=== PATIENT | male | born 1955 | race Caucasian/White ===

== ENCOUNTER 2025-05-07 12:01 | Outpatient (CLI) | payer MEDICARE, OTHER, SELFPAY ==
--- NOTE | ~2025-05-07 | PE_ITS ---
EXAMINATION: PET_PETPSMAST_PT DATE: 05/07/2025 14:50 INDICATION: Prostate cancer TECHNIQUE: 5.566 mCi of Illucix Ga-68([id number]) was administered i.v. Low dose computed zahida graphy (CT) images were acquired from the base of the brain to the base of the brain to the proximal thighs for attenuation correction and anatomic localization. Positron emission tomography (PET) image s were acquired in the same distribution beginning 95 minutes after injection. Images including fused PET/CT images were reconstructed in axial, coronal, and sagittal planes. Automated exposure control technique was employed. The dose-length product was 1069.79mGy-cm. COMPARISON: None FINDINGS: Head/neck: Typical pattern of symmetric physiologic increased activity in the lacrimal, parotid and submandibula r glands as well as along the mucosa of the nasal and oral cavities, pharynx and hypopharynx. There i s a single enlarged 2.3 x 1.4 cm left submental lymph node without increased activity which could be either reactive or related to lymphoma or other known prostatic metastatic disease. No other patholog ically enlarged cervical lymphadenopathy or suspicious foci of increased uptake in the visualized hea d or neck. Chest: Mild dependent atelectasis in bilateral lower lobes. Heart size is normal. Atherosclerotic coronary a rtery calcification. No pericardial or pleural effusion. Thoracic aorta is normal in caliber. No path ologically enlarged or PSMA avid thoracic lymphadenopathy. Abdomen/pelvis/proximal thighs: Physiologic renal accumulation and excretion of activity in the kidneys, bladder and along portions o f ureters. Prostatomegaly measuring 4.7 x 3.6 cm. There is a small focus of increased uptake with max imal SUV of 12.6 positioned at the right posterior peripheral zone of the prostate consistent with pr imary prostate cancer. Normal degree and slightly heterogenous pattern of increased uptake throughout the liver and spleen without radiologic correlate or dominant PSMA avid lesion. The gallbladder, gan creas and bilateral adrenal glands are normal. Moderate uptake scattered throughout the bowels with t ypical duodenal and proximal jejunal predominance and without radiologic correlate, also likely physi ologic. There is mild colonic diverticulosis without adjacent inflammatory change to suggest divertic ulitis. Normal appendix. No other abnormal foci of increased uptake or pathologically enlarged lympha denopathy in the abdomen, pelvis or proximal thighs. Musculoskeletal: Mild thoracic and moderate cervical and lumbar spondylosis. No suspicious lytic, blastic or abnormall y PSMA avid bone lesions. IMPRESSION: 1. Single focus of increased uptake at the right peripheral zone of the prostate consistent with prim berta prostate cancer. No evident metastatic disease. 2. Indeterminate enlarged 2.3 x 1.4 similar left submental lymph node without evident PSMA neck activ ity which could be reactive, lymphoma or metastatic in etiology. Could consider ultrasound-guided bio psy. Reviewed, dictated and finalized at location A. IMPRESSION: 1. Single focus of increased uptake at the right peripheral zone of the prostat e consistent with primary prostate cancer. No evident metastatic disease. 2. Indeterminate enlarged 2.3 x 1.4 similar left submental lymph node without e vident PSMA neck activity which could be reactive, lymphoma or metastatic in et iology. Could consider ultrasound-guided biopsy.
--- OUTSIDE RECORDS SUMMARY | 2025-05-07 12:07 | XMS_ITS | Referral Summary ---
Author Organization [facility] [address] [facility] Address [address] [place] [address] Care Team Providers Care Manager Continuous Improvement Name Role Phone Ky Davalos MD Primary Care Provider [phone] Encounters Date Type Department Care Team Description 05/02/2025 Orders Only [facility] Operating Room [address] [place] [phone] Godfrey Fan MD External hemorrhoid (Primary Dx) 04/26/2025 11:00 AM CDT - 04/26/2025 11:45 AM CDT Surgery [facility] Operating Room 1 [place] [address] Godfrey Fan MD URONAV GUIDED PROSTATE BIOPSY 04/26/2025 11:10 AM CDT Anesthesia Event [facility] Operating Room 1 [place] [address] Gary Kimball DO Reynolds, Ethan Emerson, MD 04/26/2025 8:47 AM CDT - 04/26/2025 1:00 PM CDT Hospital Encounter [facility] Operating Room [address] [place] [address] Godfrey Fan MD Elevated prostate specific antigen (PSA) Discharge Disposition: Discharge to home or self care 04/04/2025 Telephone [facility] [address] [phone] Ky Davalos MD 02/06/2025 Telephone [facility] [address] [phone] Ky Davalos MD from Last 3 Months Allergies No known active allergies Medications aspirin 81 mg enteric coated tablet Take 1 tablet (81 mg total) by mouth daily 30 tablet 11 02/11/2021 Active atorvastatin (LIPITOR) 40 mg tablet Take 1 tablet (40 mg total) by mouth daily 90 tablet 3 01/29/2025 Active Active Problems Problem Noted Date Diagnosed Date Elevated prostate specific antigen (PSA) 025 Elevated PSA, less than 10 ng/ml 02/06/2025 Assessment & Plan (02/06/2025 1:03 PM CDT): REferral to udrology. Asymptomatic mild elevation in PSA. Refer to urology for consutlation. Annual physical exam 02/06/2025 Assessment & Plan (02/06/2025 1:04 PM CDT): Glen romo xam is preventative in nature. Reviewed immunizaotns, reviewed sun/skin cancer screneing. Reviewed colon cancer screening. Congratulate on active, healthy lfiesytle. Mixed hyperlipidemia 02/06/2025 Assessment & Plan (02/06/2025 1:04 PM CDT): Refilled atorvastatin and will follow response. No new arthrlagias. Encounter for screening colonoscopy 12/13/2019 Overview (12/13/2019): Added automatically from request for surgery [id number] Assessment & Plan (02/06/2025 1:04 PM CDT): Referral place.d Immunizations Immunization Administration Dates Next Due Influenza, Trivalent, High D ose, Split, Preservative Free, Intramuscular 08/12/2020,09/21/2019 Influenza, Unspecified 07/18/2023,2022(Deferred: Patient Refused),06/18/2022(Deferred: Patient Refused),10/18/2021(Deferred: Patient Refused),06/18/2021(Deferred: Patient Refused),08/12/2020,10/06/2019, 018 Pfizer SARS-CoV-2 Monovalent Vaccination (12+ Yrs) PURPLE 08/09/2021,01/02/2021,12/10/2020 Pneumococcal Conjugate PCV 13 09/21/2019 Pneumococcal Conjugate, Unspecified 10/06/2019 Pneumococcal Polysaccharide PPV23 09/25/2020 Social History Tobacco Use Types Packs/Day Years Used Date Smoking Tobacco: Never Smokeless Tobacco: Never Tobacco Cessation:Counseling Given: Not Answered AUDIT-C Answer Date Recorded Q1: How often do you have a drink containing alc ohol? Monthly or less 04/26/2025 Q2: How many drinks containi ng alcohol do you have on a typical day when you are drinking? 3 or 4 04/26/2025 Q3: How often do you have si x or more drinks on one occasion? Monthly 04/26/2025 PHQ-2 Answer Date Recorded PHQ-2 Total Score (If total score is 3 or more points, staff should administer the PHQ-9) 0 01/29/2025 Personal Safety Answer Date Recorded Have you ever been in or are you currently in a harmful physical or emotional relationship or is someone making you feel afraid or unsafe? 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 Gender Identity Not on file Sexual Orientation Not on file Last Filed Vital Signs Vital Sign Reading Time Taken Comments Blood Pressure 154/83 04/26/2025 12:44 PM CDT Pulse 57 04/26/2025 12:44 PM CDT Temperature 35.7 C (96.3 F) 04/26/2025 12:44 PM CDT Respiratory Rate 18 04/26/2025 12:44 PM CDT Oxygen Saturation 100% 04/26/2025 12:44 PM CDT Inhaled Oxygen Concentration - - Weight 81.7 kg (180 lb 1.9 oz) 04/26/2025 8:57 A M CDT Height 177.8 cm (5' 10) 04/26/2025 8:57 AM CDT Body Mass Index 25.84 04/26/2025 8:57 AM CDT Plan of Treatment Not on file Procedures Procedure Name Priority Date/Time Associated Diagnosis Comments SURGICAL PATHOLOGY Routine 04/26/2025 12 :44 PM CDT Elevated prostate specific antigen (PSA) URONAV GUIDED PROSTATE BIOPSY 04/26/2025 11:10 AM CDT Elevated prostate specific antigen (PSA) ECG 12-LEAD STAT 04/26/2025 9:07 AM CDT PSA SCREEN Routine 01/22/2025 9:14 AM CDT Elevated PSA COLONOSCOPY 08/12/2022 10:33 AM CDT HEPATITIS C ANTIBODY Routine 01/13/2021 10:16 AM CDT Need for hepatitis C screening test from Last 3 Months or Most Recently Relevant to Health Maintenance Results * Surgical pathology (04/26/2025 12:44 PM CDT) Tissue (Prostate, Needle Biopsy) 04/26/2025 11:19 AM CDT Tissue specimen (specimen) (Prostate, Needle Biopsy) 04/26/2025 11:19 AM CDT Tissue specimen (specimen) (Prostate, Needle Biopsy) 04/26/2025 11:19 AM CDT Tissue specimen (specimen) (Prostate, Needle Biopsy) 04/26/2025 11:19 AM CDT Tissue specimen (specimen) (Prostate, Needle Biopsy) 04/26/2025 11:19 AM CDT Tissue specimen (specimen) (Prostate, Needle Biopsy) 04/26/2025 11:19 AM CDT Tissue specimen (specimen) (Prostate, Needle Biopsy) 04/26/2025 11:19 AM CDT Tissue specimen (specimen) (Prostate, Needle Biopsy) 04/26/2025 11:19 AM CDT Tissue specimen (specimen) (Prostate, Needle Biopsy) 04/26/2025 11:19 AM CDT Tissue specimen (specimen) (Prostate, Needle Biopsy) 04/26/2025 11:19 AM CDT Tissue specimen (specimen) (Prostate, Needle Biopsy) 04/26/2025 11:19 AM CDT Tissue specimen (specimen) (Prostate, Needle Biopsy) 04/26/2025 11:19 AM CDT Tissue specimen (specimen) (Prostate, Needle Biopsy) 04/26/2025 11:21 AM CDT Tissue specimen (specimen) (Prostate, Needle Biopsy) 04/26/2025 11:22 AM CDT Narrative [facility]Y [facility] - 05/02/2025 9:56 PM CDT EPIC results best viewed via link to PDF [facility] Department of Pathology [address] [place] [address] Note to Patients: This report may contain a detailed description of human tissue sent by a health care provider to the laboratory for pathologic evaluation. The content of this report is essential for diagnosis and may provide important critical findings. This information may be unfamiliar to patients to review without a medical professional present. It is advised that the patient review this report in the presence of a health care provider who can answer questions and explain the details. Final Report Patient Name: SANDER FAIR Address: [address] [place] [address] [place] [address]- Gender: M : 1955 (Age: 69) Service: Surgery Location: [facility] Hospital #: [id number] Patient Type: [facility] Taken: 04/26/2025 Received: 04/26/2025 Accessioned: 04/26/2025 Reported: 05/02/2025 Physician(s):Godfrey Fan M.D. Diagnosis: A-G, I, K-N. Prostate (RLB, RMB, RLM, RMM, RLA, RMA, LLB, LLM, LLA, LMA, Panchito 1, Panchito 2), needle biopsies: - Adenocarcinoma (see the synoptic table below for additional details). 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 - Focal perineural invasion identified in the Panchito 1 site. H, J. Prostate (LMB, LMM), needle biopsies: - Benign prostatic tissue. Synoptic Diagnosis: Part Container Cores Length (mm) Diagnosis Bagwell score, grade group, and extent A. RLB One 10 Adenocarcinoma 4 + 3 = 7 (60% pattern 4), grade group 3, 6 mm, 60% B. RMB One 15 Adenocarcinoma 4 + 3 = 7 (90% pattern 4), grade group 3, 5 mm, 33% C. RLM One 10 Adenocarcinoma 4 + 3 = 7 (80% pattern 4), grade group 3, 9 mm, 90% D. RMM One 14 Adenocarcinoma 4 + 3 = 7 (90% pattern 4), grade group 3, 7 mm, 50% E. RLA One 10 Adenocarcinoma 4 + 3 = 7 (90% pattern 4), grade group 3, 5 mm, 50% F. RMA One 9 Adenocarcinoma 4 + 3 = 7 (90% pattern 4), grade group 3, 6 mm, 67% G. LLB One 6 Adenocarcinoma 4 + 4 = 8, grade group 4, 1 mm, 15% H. LMB One 19 Benign I. LLM One 10 Adenocarcinoma 4 + 4 = 8, grade group 4, 6 mm, 60% J. LMM One 20 Benign K. LLA One 10 Adenocarcinoma 4 + 3 = 7 (80% pattern 4), grade group 3, 2 mm, 20% L. LMA One 8 Adenocarcinoma 4 + 3 = 7 (90% pattern 4), grade group 3, 2 mm, 25% M. Panchito #1 Four 40 Adenocarcinoma 4 + 3 = 7 (90% pattern 4), grade group 3, 16 mm, 40% N. Panchito #2 Four 50 Adenocarcinoma 4 + 3 = 7 (80% pattern 4), grade group 3, 9 mm, 35% Afshin Martinez MD Report Electronically Reviewed and Signed Out By Afshin Martinez MD 05/02/2025 21:56:22 Specimen(s) Received: A: Right lateral base B: Right medial base C: Right lateral mid D: Right medial mid E: Right lateral apex F: Right medial apex G: Left lateral base H: Left medial base I: Left lateral mid J: Left medial mid K: Left lateral apex L: Left medial apex M: Region of interest 1 N: Region of interest 2 Microscopic Description: A-G, I, K-N. Specimens from these sites show similar findings and will be described together. Sections show adenocarcinoma (see the synoptic table below for additional details). Intraductal carcinoma is also seen in parts I, K, and M (corresponding to the LLM, LLA, and region of interest #1 sites). Specimen G (corresponding to LLB) shows apparent prostatic duct adenocarcinoma, classified as pattern 4 when seen without comedonecrosis. Focal perineural invasion is noted in the region of interest #1 site. p63, PSA, AMACR, and PIN-4 stains are performed with appropriately reactive controls (p63, PSA, and AMACR on blocks G1 and I1; PIN-4 on blocks K1 and M1) and show loss of the basal cell layers, PSA expression, and increased AMACR expression in the adenocarcinoma and retained basal cell layer staining in the intraductal carcinoma. Recommend follow-up as clinically indicated. H, J. Specimens from these sites show similar findings and will be described together. Sections show benign-appearing prostatic glands and stroma. A PIN-4 stain is performed with appropriately reactive controls on block H1 to evaluate a few mildly distorted glands and demonstrates no increase in AMACR expression with concurrent loss of basal layer staining. Intradepartmental consultation: This case was also reviewed by Dr. Mcdonough, who concurs with the above findings. Clinical History: Elevated prostate specific antigen (PSA). Uronav guided prostate biopsy. Gross Description: The specimen is submitted in fourteen containers labeled SANDER FAIR. A. The first container is labeled right lateral base. It is 1 core of rubio tissue measuring 1.0 cm. Entirely in A. B. The second container is labeled right medial base. It is 1 core of rubio tissue measuring 1.5 cm. Entirely in B. C. The third container is labeled right lateral mid. It is 1 core of rubio tissue measuring 1 cm. Entirely in C. D. The fourth container is labeled right medial mid. It is 1 core of rubio tissue measuring 1.4 cm. Entirely in D. E. The fifth container is labeled right lateral apex. It is 1 core of rubio tissue measuring 1.0 cm. Entirely in E. F. The sixth container is labeled right medial apex. It is 1 core of rubio tissue measuring 9 mm. Entirely in F. G. The seventh container is labeled left lateral base. It is 1 core of rubio tissue measuring 6 mm. Entirely in G. H. The eighth container is labeled left medial base. It is 1 core of rubio tissue measuring 1.9 cm. Entirely in H. I. The ninth container is labeled left lateral mid. It is 1 core of rubio tissue measuring 10 mm. Entirely in I. J. The tenth container is labeled left medial mid. It is 1 core of rubio tissue measuring 2 cm. Entirely in J. K. The eleventh container is labeled left lateral apex. It is 1 core of rubio tissue measuring 1 cm. Entirely submitted K. L. The twelfth container is labeled left medial apex. It is 1 core of rubio tissue measuring 8 mm. Entirely in L. M. The thirteenth container is labeled region of interest #1. It is 4 cores of rubio tissue between 0.4 and 1.1 cm. Entirely in M. N. The fourteenth container is labeled region of interest #2 . It is 4 cores of rubio tissue between 0.7 and 1.2 cm. Entirely in N. T.A. Josiane Osuna P.A./Keon Toney M.D. REPORT IMAGES AND SCANNED DOCUMENTS, IF INCLUDED, ONLY VIEWABLE IN PDF VERSION OF REPORT The performance characteristics of some immunohistochemical stains, fluorescence in-situ hybridization tests and immunophenotyping by flow cytometry cited in this report (if any) were determined by the Surgical Pathology Department at [facility] as part of an ongoing quality compliance consultant program and in compliance with federally mandated regulations drawn from the Clinical Laboratory Improvement Act of 1988 (CLIA '88). Some of these tests rely on the use of analyte specific reagents and are subject to specific labeling requirements by the US Food and Drug Administration. Such diagnostic tests may only be performed in a facility that is certified by the Department of Health and Human Services as a high complexity laboratory under CLIA '88. The FDA has determined that such clearance or approval is not necessary. This test is used for clinical purposes. It should not be regarded as investigational or for research. Nevertheless, federal rules concerning the medical use of analyte specific reagents require that the following disclaimer be attached to the report: This test was developed and its performance characteristics determined by the Surgical Pathology Department [facility]. It has not been cleared or approved by the U. S. Food and Drug Administration. Note for decalcified specimens: This assay has not been validated on decalcified tissues. Results should be interpreted with caution given the possibility of false negativity on decalcified specimens us Godfrey Fan MD LAB PATHOLOGY ORDERA BLES Final Result PATHOLOGY [facility] [address] [place] [address] * ECG 12 lead (04/26/2025 9:07 AM CDT) 04/26/2025 9:07 AM CDT Narrative [facility] - 04/26/2025 11:35 AM CDT Vent Rate: 63 bpm RR Interval: 941 msec NH Interval: 150 msec QRS Duration: 98 msec QT Interval: 416 msec QTC Interval: 424 msec P-R-T [place]: 27 - -7 - 25 degrees IMPRESSION: SINUS RHYTHM Leftward axis No prior EKG for comparison Electronically Signed By: Dr Jhon Dunbar us Osvaldo Pulido MD ECG ORDERABLES Final Result Performing Organization Address [facility] Co de Phone Number [employer] [facility] * (ABNORMAL) PSA screen (01/22/2025 9:14 AM CDT) PSA-Total 9.51(H) <=6.20 ng/mL Comment: Interpretive Data AGE SEX REFERENCE INTERVAL 0 minutes-150 years Female None 0 minutes-49 years Male None 50-59 years Male 0-3.90 60-69 years Male 0-5.40 70-79 years Male 0-6.20 80-150 years Male 0-6.20 The Ginny PSA Total assay procedure was used. Results from different manufacturers or methods may not be comparable. Serial testing should be performed using the same method. Current interpretive data last revised 22. Testing performed by: [facility], [address] [place] [address]., [id number] Blood 01/22/2025 9:14 AM CDT 01/22/2025 12:33 PM CDT us Ky Davalos MD LAB BLOOD ORDERABLES Shelby l Result Performing Organization Address City/[facility] Co de Phone Number [facility] 1 [facility] Department [place] [address] * COLONOSCOPY (08/12/2022 10:33 AM CDT) Anatomical Region Laterality Modality Other Narrative Procedure Note Edilson Parks MD - 08/12/2022 10:[address] [facility] Patient Name: Sander Fair Procedure Date: 08/12/2022 10:33AM Date of : 1955 Admit Type: Outpatient Age: 66 Gender: Male Attending MD: Edilson Parks M.D. Room: [facility] ENDOSCOPY ROOM 1 Note Status: Finalized Patient Profile: This is a 66 year old male. No family history ofcolon cancer. Screening. Procedure: Colonoscopy Indications: Screening for colorectal malignant neoplasm, Thisis the patient's first colonoscopy Referring MD: Ky Davalos M.D. Providers: Edilson Parks M.D. Impression: - One 4 mm polyp in the cecum, removed with a jumbo cold forceps. Resected and retrieved. - Diverticulosis in the sigmoid colon. - The rectum is normal. Recommendation: - Continue present medications. - Await pathology results. - Repeat colonoscopy in 5-10 years for screening purposes. Medicines: Monitored Anesthesia Care Complications: No immediate complications. Estimated Blood Loss: Estimated blood loss: none. Procedure: Pre-Anesthesia Assessment: - Prior to the procedure, a History and Physicalwas performed, and patient medications and allergieswere reviewed. The patient's tolerance of previous anesthesia was also reviewed. The risks andbenefits of the procedure and the sedation options and risks were discussed with the patient. All questions were answered, and informed consent was obtained. Prior Anticoagulants: The patient has taken noanticoagulant or antiplatelet agents. ASA Grade Assessment: II -A patient with mild systemic disease. After reviewing the risks and benefits, the patient was deemed in satisfactory condition to undergo the procedure. The benefits, risks and alternatives of theprocedure and sedation were discussed and informed consentwas obtained. All questions were answered. Please referto the signed informed consent document in the medical record. The scope was passed under direct vision.The Pediatric Colonoscope PCF-H190L [id number] was introduced through the anus and advanced to the the cecum, identified by appendiceal orifice andileocecal valve. The bowel preparation used was Miralax via split dose instruction. The bowel preparation usedwas bisacodyl tablets via split dose instruction. The quality of the bowel preparation was good. Bowelprep was administered using a split dose. Findings: The perianal and digital rectal examinations were normal. The appendiceal orifice appeared normal. A 4 mm polyp was found in the cecum. The polyp was semi-sessile. The polyp was removed with a jumbo cold forceps. Resection and retrieval were complete. The descending colon, transverse colon and ascending colon appeared normal. Many medium-mouthed diverticula were found in the sigmoid colon. The rectum appeared normal. Electronically signed by Edilson Parks M.D. Edilson Parks M.D. 08/12/2022 11:17:55 AM Number of Addenda: 0 Note Initiated On: 08/12/2022 10:33 AM Procedure Code(s): --- Professional --- 82396, Colonoscopy, flexible; with biopsy, single or multiple Diagnosis Code(s): --- Professional --- Z12.11, Encounter for screening for malignant neoplasm of colon D12.0, Benign neoplasm of cecum K57.30, Diverticulosis of large intestine without perforation orabscess without bleeding CPT copyright 2020 [employer]. All rights reserved. The codes documented in this report are preliminary and upon steam and gas turbine assembler reviewmay be revised to meet current compliance requirements. Recognized by the [employer] for promoting quality in endoscopy Edilson Parks MD ENDOSCOPY PROCEDURES Final Result * Hepatitis C antibody (01/13/2021 10:16 AM CDT) Hep C Ab Nonreactive Nonreactive TY[facility]LL PETERS Comment: Interpretive Data Nonreactive: Antibodies to HCV not detected. Does NOT exclude the possibility of recent exposure to HCV. Equivocal: Equivocal for HCV antibodies. Supplemental molecular testing will be automatically performed to determine infection status in accordance with current CDC screening recommendations. Reactive: Positive for HCV antibodies. This may represent current or past HCV infection. Supplemental molecular testing will be automatically performed to determine current infection status in accordance with current CDC screening recommendations. Interpretive data was last revised on 2020. Blood specimen (specimen) 01/13/2021 10:16 AM CDT 01/13/2021 4:49 PM CDT Ky Davalos MD LAB MICROBIOLOGY - GENERA L ORDERABLES Final Result [facility] [address] Department [place] [address] from Last 3 Months or Most Recently Relevant to Health [place] [address] MEDICARE [facility] Member Subscriber Plan / Payer (Ef fective 2018-Present) Name:Sander Fair Relation to Subscriber:Self Name:Sander Fair Payer ID:[id number] Group ID:Not on file Type:COMMERCIAL Address: [facility] [address] [place], [place] MEDICARE [facility] [facility] [place] Member Subscriber Plan / Payer (Ef fective 2018-Present) Name:Sander Fair Relation to Subscriber:Self Name:Sander Fair Payer ID:[id number] Group ID:Not on file Type:[place]o Address: [facility] [address] [place], [place] Advance Directives For more information, please contact: [phone] * Full Code (Latest Code Status on File) Date Activated Date Inactivated Comments 08/12/2022 9:12 AM 08/12/2022 4:09 PM * Full Code Date Activated Date Inactivated Comments 08/12/2022 9:12 AM 08/12/2022 9:12 AM Care Teams Manager Continuous Improvement Relationship Specialty Start Date End Date Ky Davalos MD [address] [place] [address] PCP - General Family Medicine 07/18/19
--- OUTSIDE RECORDS SUMMARY | 2025-05-07 12:07 | XMS_ITS | Clinical Summary ---
Author [place] [facility] [place] [address] [facility] [place] [facility] lto Address [address] [place] [address] Care Team Providers Care Educational Paraprofessional Name Role Phone Ky Davalos MD Primary Care Provider [phone] Allergies No known active allergies Medications aspirin [...] Assessment & Plan (02/06/2025 1:04 PM CDT): Foucnick demetrius xam is preventative in nature. Reviewed immunizaotns, reviewed sun/skin cancer screneing. Reviewed colon cancer screening. Congratulate on active, healthy lfiesytle. Mixed hyperlipidemia 02/06/2025 Assessment & Plan (02/06/2025 1:04 PM CDT): Refilled atorvastatin and will follow response. No new arthrlagias. Encounter for screening colonoscopy 12/13/2019 Overview (12/13/2019): Added automatically from request for surgery [id number] Assessment & Plan (02/06/2025 1:04 PM CDT): Referral place.d Encounters Date Type Department Care Team Description 05/02/2025 Orders Only [facility] Operating Room [address] [place] [address] Godfrey Fan MD External hemorrhoid (Primary Dx) 04/26/2025 11:10 AM CDT Anesthesia Event [facility] Operating Room [address] [place] [address] Gary Kimball DO Reynolds, Ethan Emerson, MD 04/26/2025 11:00 AM CDT - 04/26/2025 11:45 AM CDT Surgery [facility] [address] [place] [address] Godfrey Fan MD URONAV GUIDED PROSTATE BIOPSY 04/26/2025 8:47 AM CDT - 04/26/2025 1:00 PM CDT Hospital Encounter [facility] [address] [place] [address] Godfrey Fan MD Elevated prostate specific antigen (PSA) Discharge Disposition: Discharge to home or self care 04/04/2025 Telephone [facility] [address] [phone] Ky Davalos MD 02/06/2025 Telephone [facility] [address] [phone] Ky Davalos MD from Last 3 Months Immunizations Immunization Administration Dates Next Due Influenza, Trivalent, High D ose, Split, Preservative Free, Intramuscular 08/12/2020,09/21/2019 Influenza, Unspecified 07/18/2023,2022(Deferred: Patient Refused),06/18/2022(Deferred: Patient Refused),10/18/2021(Deferred: Patient Refused),06/18/2021(Deferred: Patient Refused),08/12/2020,10/06/2019, [facility] Pfizer SARS-CoV-2 Monovalent Vaccination (12+ Yrs) PURPLE 08/09/2021,01/02/2021,12/10/2020 Pneumococcal Conjugate PCV 13 09/21/2019 Pneumococcal Conjugate, Unspecified 10/06/2019 Pneumococcal Polysaccharide PPV23 09/25/2020 Surgical History Surgery Date Site/Laterality Comments COLONOSCOPY 08/12/2022 1st Medical History Medical History Date Comments Hyperlipidemia Hx of plastic surgery facial zaynab percy as a kid Family History Medical History Relation Name Comments Heart disease Father Cancer Mother Heart disease Mother Hypertension Mother Nasal Pharynx Cancer Mother Relation Name Status Comments Father (Age 86) Mother (Age 64) Social History Tobacco Use Types Packs/Day Years [...] on file Legal Sex Male 10:21 AM [employer] Gender Identity Not on file Sexual Orientation Not on file Obstetrics History Last Filed Vital Signs Vital Sign Reading [...] 04/26/2025 8:57 AM CDT Plan of Treatment Health Maintenance Due Date Last Done Comments DTaP/Tdap/Td Vaccine (1 - Tdap) 1964 Hepatitis B Screening 1971 Zoster Vaccine (1 of 2) 2003 Covid-19 Vaccine (4 - 2023-2 5 season) 2024 08/09/2021, 01/02/2021, 12/10/2020 Influenza Vaccine (#1) 2025 , 08/12/2020, 08/12/2020, Additional history exists Depression Screening 01/29/2026 01/29/2025, 01/26/2024, 01/20/2023, Additional history exists Well Visit 65+ 01/29/2026 01/29/2025, 01/16, 01/20/2023, Additional history exists Fall Risk Assessment 04/04/2026 04/04/2025, 01/29/2025, 01/26/2024, Additional history exists Colon Cancer Screening-Colonoscopy 08/12/2032 08/12/2022 Pneumococcal vaccine 65+ Completed 020, 10/06/2019, 09/21/2019 Hepatitis C Screening Completed 01/13/2021 Colon Cancer Screening-CT Colonography Discontinued 08/12/2022 Colon Cancer Screening-DNA Stool Discontinued 08/12/20 Colon Cancer Screening-FIT Discontinued 08/12/2022 Colon Cancer Screening-Sigmoidoscopy Discontinued 08/12/2022 Prostate Cancer Screening-PSA Discontinued , 01/26/2024, 01/20/2023, Additional history exists Procedures Procedure Name Priority Date/Time Associated Diagnosis [...] Biopsy) 04/26/2025 11:22 AM CDT Narrative PATHOLOGY [facility] ([facility]) - 05/02/2025 9:56 PM CDT EPIC results best viewed via link to PDF [facility] Department of Pathology [address] [place] [address] Note to Patients: This report may contain [...] Final Report Patient Name: SANDER FAIR Address: [address] [place] [address] , [place] [address]- Gender: M : 1955 (Age: 69) Service: Surgery Location: [facility] Hospital #: [id number] Patient Type: [facility] Taken: 04/26/2025 Received: 04/26/2025 Accessioned: 04/26/2025 Reported: [...] Diagnosis: Part Container Cores Length (mm) Diagnosis Saline score, grade group, and extent A. RLB [...] determined by the Surgical Pathology Department at [facility] as part of an ongoing quality assurance consultant program and in compliance with federally [...] characteristics determined by the Surgical Pathology Department [facility]. It has not been cleared or approved by the U. S. Food and Drug Administration. Note for decalcified specimens: This assay has not been validated on decalcified tissues. Results should be interpreted with caution given the possibility of false negativity on decalcified specimens Godfrey Fan MD LAB PATHOLOGY ORDERA BLES Final Result PATHOLOGY [facility] [address] [place] [address] * ECG 12 lead (04/26/2025 9:07 AM CDT) 04/26/2025 9:07 AM CDT Narrative [facility] - 04/26/2025 11:35 AM CDT Vent Rate: 63 bpm RR Interval: 941 msec HI Interval: 150 msec QRS Duration: 98 msec QT Interval: 416 msec QTC Interval: 424 msec P-R-T [place]: 27 - -7 - 25 degrees IMPRESSION: SINUS RHYTHM Leftward axis No prior EKG for comparison Electronically Signed By: Dr Jhon Dunbar us Osvaldo Pulido MD ECG ORDERABLES Final Result [facility] * (ABNORMAL) PSA screen (01/22/2025 9:14 AM [...] data last revised 22. Testing performed by: [facility], [address] [place] [address], [facility] Blood 01/22/2025 9:14 AM CDT 01/22/2025 12:33 PM CDT us Ky Davalos MD LAB BLOOD ORDERABLES Shelby l Result Performing Organization Address City/[facility] Co de Phone Number [facility] ([facility]) [address] [facility] Department [place] [address] * COLONOSCOPY (08/12/2022 10:33 AM CDT) Anatomical Region Laterality Modality Other Narrative Procedure Note Edilson Parks MD - 08/12/2022 10:33 AM CDT [facility] Patient Name: Sander Fair Procedure Date: 08/12/2022 10:33AM Date of : 1955 Admit Type: Outpatient Age: 66 Gender: Male Attending MD: Edilson Parks M.D. Room: [facility] ENDOSCOPY ROOM 1 Note Status: Finalized Patient [...] passed under direct vision.The Pediatric Colonoscope [id number]-H190L [id number] was introduced through the anus and advanced [...] 10:33 AM Procedure Code(s): --- Professional --- 07115, Colonoscopy, flexible; with biopsy, single or multiple Diagnosis Code(s): --- Professional --- Z12.11, Encounter for screening for malignant neoplasm of colon D12.0, Benign neoplasm of cecum K57.30, Diverticulosis of large intestine without perforation orabscess without bleeding CPT copyright 2020 [employer]. All rights reserved. The codes documented in this report are preliminary and upon new car make ready worker reviewmay be revised to meet current compliance requirements. Recognized by the [employer] for promoting quality [...] - GENERA L ORDERABLES Final Result [facility] [address] Department [place] [address] from Last 3 Months or Most Recently Relevant to Health [place] [address] [place] [address] [facility] [place] [address] [employer] [facility] [place] Advance Directives For more information, please contact: [phone] * Full Code (Latest Code Status on File) Date Activated Date Inactivated Comments 08/12/2022 9:12 AM 08/12/2022 4:09 PM * Full Code Date Activated Date Inactivated Comments 08/12/2022 9:12 AM 08/12/2022 9:12 AM Care Teams Educational Paraprofessional Relationship Specialty Start Date End Date Ky Davalos MD [address] [place] [id number] PCP - General Family Medicine 07/18/19
== END 2025-05-07 12:02 | disposition home or self-care (01) ==
PROVIDERS: PCP Family Medicine; Visit Provider Urology
DX: C61 Malignant neoplasm of prostate (principal)
CPT/HCPCS: 78815; A9596